=== PATIENT | male | born 1975 | race American Indian/Alaskan Native ===

== ENCOUNTER 2018-09-30 06:22 | Day surgery (SDC) | payer OTHER ==
[2018-09-29 14:15] VITALS: BMI 25.4
[2018-09-30] MEDS ORDERED: LIDOCAINE HCL 1% EPINEPHRINE 1:200,000 30 ML VIAL (PF) ONE (07:15)
[2018-09-30] MEDS ORDERED: LIDOCAINE 1%-EPI 1:100,000 30 ML MDV IJ ONE (07:31)
[2018-09-30] MEDS ORDERED: COCAINE HCL 4% TOPICAL SOLUTION 4 ML BOTTLE TP ONE ×2 (07:31→08:14)
[2018-09-30] MEDS ORDERED: MIDAZOLAM HCL 2 MG/2 ML SINGLE DOSE VIAL ONE (07:39)
[2018-09-30] MEDS ORDERED: ROCURONIUM BROMIDE 50 MG/5 ML SYRINGE ONE (07:39)
[2018-09-30] MEDS ORDERED: fentaNYL CITRATE 250 MCG/5 ML VIAL ONE (07:39)
[2018-09-30] MEDS ORDERED: LIDOCAINE HCL/PF 2% SDV 5ML VIAL ONE (07:39)
[2018-09-30] MEDS ORDERED: PROPOFOL 20 ML ONE ×2 (07:39)
[2018-09-30] MEDS ORDERED: DESFLURANE GAS 240 ML BOTTLE IH ONE (07:47)
[2018-09-30] MEDS ORDERED: LIDOCAINE 1%/EPI 1:100000 (50 ML MULTI DOSE VIAL) INF ONE (08:14)
[2018-09-30] MEDS ORDERED: DEXAMETHASONE SOD PHOSPHATE 4 MG/1 ML VIAL ONE (08:19)
[2018-09-30] MEDS ORDERED: KETOROLAC TROMETHAMINE 30 MG/1 ML VIAL ONE (09:24)
[2018-09-30] MEDS ORDERED: NEOSTIGMINE METHYLSULFATE 0.5 MG/ML - 10 ML MDV ONE (09:29)
[2018-09-30] MEDS ORDERED: GLYCOPYRROLATE 0.2 MG/1 ML VIAL ONE (09:29)
[2018-09-30] MEDS ORDERED: ACETAMINOPHEN 500 MG TABLET (FP) PO PRN (09:59)
[2018-09-30] MEDS ORDERED: oxyCODONE HCL 5 MG TABLET PO PRN (09:59)
[2018-09-30] MEDS ORDERED: ONDANSETRON 4 MG/2 ML VIAL IVPUSH PRN (09:59)
[2018-09-30] MEDS ORDERED: LACTATED RINGERS SOLUTION 1,000 ML IV SCH (10:00)
--- NOTE | 2018-09-30 10:18 | OP ---
Operative Note - Note: Operative Date: 09/30/18 Pre-Operative Diagnosis: chronic sinusitis. deviated septum Operation: bilateral FESS (ethmoid, maxillary and sphenoid) and septoplasty Post-Operative Diagnosis: Same as Pre-op Surgeon: Donald Benitez Anesthesiologist/SWEEPER OPERATOR HIGHWAYS: Nel Laguerre Anesthesia: General Specimens Removed: sinus contents and septum Estimated Blood Loss (mls): 50 Fluid Volume Replaced (mls): 600 Operative Report Dictated: Yes
[2018-09-30 13:19] VITALS: PULSE 75; TEMP 97.3
[2018-09-30 14:10] VITALS: BP 121/81
--- NOTE | 2018-09-30 14:39 | OP ---
DATE OF OPERATION: 09/30/2018 PREOPERATIVE DIAGNOSIS: Chronic sinusitis and deviated nasal septum. POSTOPERATIVE DIAGNOSIS: Chronic sinusitis and deviated nasal septum. PRODEDURE: Bilateral endoscopic total ethmoidectomy, bilateral endoscopic maxillary antrostomy, bilateral endoscopic sphenoidotomy, and septoplasty. SURGEON: Donald Benitez MD ANESTHESIOLOGIST: Nel Laguerre MD ANESTHESIA: General endotracheal. INDICATIONS: The patient is a 43-year-old man with chronic sinusitis refractory to maximal medical management whose CT scan showed scattered inflammation in the ethmoid, maxillary, and sphenoid sinus regions. He is also noted to have a right-sided deviated nasal septum which presents an access problem for sinus surgery. The nature and purpose of the proposed procedure as well as the risks, benefits, alternatives, and possible complications were discussed in detail with the patient, who appears to understand and wishes to proceed with surgery. All questions were answered, and an informed consent was given by the patient. PROCEDURE DESCRIPTION: With the patient under general endotracheal anesthesia in the supine position with his back raised slightly, he was prepped and draped in the usual sterile fashion. The nose was decongested with 4% cocaine on Cottonoid pledgets after injecting the nose with 8 mL of 1% lidocaine with epinephrine 1:100,000. Three more cc were injected during the course of the procedure. The procedure was begun on the left side. The left side was examined under endoscopic guidance, and findings were grossly unremarkable. The middle turbinate was retracted laterally, and the area of the sphenoid ostium was identified and cannulated and dilated with the suction cannula. There were no secretions noted within the sphenoid sinus. A small amount of bleeding was controlled with local packing and had resolved by the end of the case. The middle turbinate was then retracted medially, and a retrograde uncinectomy was performed, and then an [id number] ethmoidectomy was performed. The maxillary ostium was then identified and opened in a posteroinferior direction. There were no secretions noted within the maxillary sinus, and the ethmoid sinus had just a small amount of thickened mucosa. The septum was then addressed through a left-sided Yadiel incision. The left mucosal flap was elevated intact. An oblique incision was made on the septal cartilage leaving a 2-cm caudal strut intact, and through this, a right-sided mucosal flap was elevated intact. Deflected portions of septal bone and cartilage were resected. A small amount of residual deviation was left inferiorly where it was not obstructing access to the sinuses. A drain hole was then cut into the left mucosal flap and cauterized. This afforded access into all the right sided sinuses. First the right sphenoid ostium was cannulated after gently retracting the middle turbinate laterally. There were no secretions noted. Then, the middle turbinate was noted to be nearly squashed against the lateral nasal wall. It was retracted medially, and a retrograde uncinectomy was performed, then an [id number] total ethmoidectomy with removal of a moderate amount of polypoid disease, and then, the maxillary ostium was identified and opened widely in a posteroinferior direction. There were no secretions noted within the antrum. Hemostasis was achieved with suction cautery. The sinuses were packed with Stammberger Sinu-Foam. The septum was quilted with howie, and then, packing was placed with Telfa gauze in each nostril. Then, he was awakened and discharged to the recovery room in satisfactory condition. Estimated blood loss was 50 mL. There were no complications. Specimens were sent to Pathology for evaluation labeled as right and left sinus contents and septum. DONALD BENITEZ M.D. [id number] MTDD
--- NOTE | 2018-10-03 17:35 | PATH ---
Surgical Pathology Report Patient Name: BASHIR LEONARD Med. Rec. #: [id number] /Age/Gender: 1975 (Age: 43) / M Account: [id number] Location: [facility] Taken: 09/30/2018 Received: 09/30/2018 Reported: 10/03/2018 Physicians: Donald Benitez Specimen(s) Received A: LEFT SINUS CONTENTS B: NASAL SEPTUM C: RIGHT SINUS CONTENTS Clinical History Chronic sinusitis, deviated nasal septum Final Diagnosis A. SINUS CONTENTS, LEFT, TOTAL ETHMOIDECTOMY, ENDOSCOPIC MAXILLARY ANTROSTOMY, SPHENOIDECTOMY: BENIGN BONE AND RESPIRATORY MUCOSA WITH CHRONIC SINUSITIS. B. SEPTUM, SEPTOPLASTY: CARTILAGE AND BONE WITHOUT SIGNIFICANT PATHOLOGIC FINDINGS. C. SINUS CONTENTS, RIGHT, TOTAL ETHMOIDECTOMY, ENDOSCOPIC MAXILLARY ANTROSTOMY, SPHENOIDECTOMY: BENIGN BONE AND POLYPOID FRAGMENTS OF RESPIRATORY MUCOSA WITH CHRONIC SINUSITIS. Electronically Signed Renetta Murphy M.D. Gross Description A. Received in formalin labeled "left sinus contents," is a 3.0 x 1.7 x 0.3 cm aggregate of garcia soft tissue fragments. The formalin is filtered and the specimen is entirely submitted in one cassette. B. Received in formalin labeled "septum," is a 2.5 x 2.3 x 0.3 cm aggregate of garcia portions of cartilage and possible bone. Alumni Secretary sections are submitted in one cassette, following decalcification. C. Received in formalin labeled "right sinus contents," is a 3.4 x 2.0 x 0.3 cm aggregate of garcia fragments of soft tissue and possible bone/cartilage. The formalin is filtered and the specimen is entirely submitted in one cassette, following decalcification. 09/30/2018 saudi09/30/2018
== END 2018-09-30 12:50 | disposition home or self-care (01) ==
LOC: JASU-SURG 06:22
PROVIDERS: ATTEND Otolaryngology
PROC: 09TU8ZZ Resection of Right Ethmoid Sinus, Via Natural or Artificial Opening Endoscopic (ICD-10-PCS; 2018-09-30)
PROC: 09BM8ZZ Excision of Nasal Septum, Via Natural or Artificial Opening Endoscopic (ICD-10-PCS; 2018-09-30)
PROC: 09TV8ZZ Resection of Left Ethmoid Sinus, Via Natural or Artificial Opening Endoscopic (ICD-10-PCS; principal; 2018-09-30 07:30)
DX: J32.9 Chronic sinusitis, unspecified (principal); J34.2 Deviated nasal septum
CPT/HCPCS: 88302-TC; 88305-TC; 88311-TC; 94760